=== PATIENT | female | born 1950 | race African-American/Black ===

== ENCOUNTER 2017-09-16 13:25 | Emergency (ER) | payer MEDICARE ==
--- NOTE | 2017-09-16 14:25 | RAD ---
CHEST ONE VIEW: History: Cough. Comparison: 12-29-12 FINDINGS: Cardiac silhouette and pulmonary vasculature are unremarkable. Mediastinum is midline with post-opera tive changes. Posterior basilar infiltrate on the lateral view is favored to be rectrocardiac on the frontal view. Upper lobes are clear. IMPRESSION: Left basilar infiltrate. Clinical correlation regarding other signs and symptoms of left lower lobe p neumonitis is required. Please consider radiographic follow up after medical treatment to evaluate fo r clearing. POS: [facility]
== END 2017-09-16 14:21 | disposition home or self-care (01) ==
LOC: NAV ERS 13:25
DX: J18.9 Pneumonia, unspecified organism (principal); I25.2 Old myocardial infarction; E11.9 Type 2 diabetes mellitus without complications; E78.5 Hyperlipidemia, unspecified; I10 Essential (primary) hypertension; Z79.899 Other long term (current) drug therapy; Z79.82 Long term (current) use of aspirin; Z79.4 Long term (current) use of insulin
CPT/HCPCS: 71046

== ENCOUNTER 2018-09-25 18:11 | Emergency (ER) | payer MEDICARE, BC ==
[2018-09-25] MEDS ORDERED: Aspirin Chewable 81 MG TAB ONE (18:27)
[2018-09-25 18:45] LABS: #Basophils 0.1 thou/uL (0.0-0.2); #Eosinphils 0.2 thou/uL (0.0-0.7); #Monocytes 0.6 thou/uL (0.11-0.59); #Neutrophils 4.3 thou/uL (1.40-6.50); %Basophils 1.8 % (0.0-1.0); %Eosinophils 2.1 % (0.0-10.0); %Lymphocytes 36.7 % (21.0-51.0); %Neutrophils 52.4 % (42.0-75.0); Hemoglobin 15.9 g/dL (12.0-16.0); Mean Corpuscular Hemoglobin 29.3 pg (27.0-31.0); Mean Corpuscular Volume 88.9 fL (78.0-98.0); Mean Platelet Volume 7.6 fL (7.4-10.4); Platelet Count 316 thou/uL (130-400); RBC Distribution Width 11.5 % (11.5-14.5); Red Blood Cell (RBC) Count 5.41 mill/uL (4.20-5.40); White Blood Cell (WBC) Count 8.2 thou/uL (4.8-10.8)
[2018-09-25 18:59] LABS: ALT (SGPT) 20 U/L (8-55); AST (SGOT) 27 U/L (5-34); Albumin 4.5 g/dL (3.4-4.8); Alkaline Phosphatase 90 U/L (40-150); Anion Gap 18 mmol/L (10-20); BUN (Urea Nitrogen) 10 mg/dL (9.8-20.1); Bilirubin, Total 0.5 mg/dL (0.2-1.2); Calc. Creatinine Clearance 0 mL/min (70-130); Calcium 9.8 mg/dL (7.8-10.44); Carbon Dioxide 22 mmol/L (23-31); Chloride 104 mmol/L (98-107); Estimated GFR-MDRD 71; Globulin 3.2 g/dL (2.4-3.5); Glucose 184 mg/dL (80-115); Potassium 3.6 mmol/L (3.5-5.1); Protein, Total 7.7 g/dL (6.0-8.3); Sodium 140 mmol/L (136-145)
--- NOTE | 2018-09-25 19:48 | RAD ---
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 Coronary artery stent overlies the left cardiac borde r. The cardiac silhouette and pulmonary vasculature are within normal limits. The lungs are clear. The osseous structures are intact. Vascular calcifications are seen in the thoracic aorta. There has been no interval change from prior exam. IMPRESSION: No acute cardiopulmonary process.
== END 2018-09-25 20:55 | disposition short-term general hospital (02) ==
LOC: NAV ERS 18:11
DX: I20.9 Angina pectoris, unspecified (principal); I25.2 Old myocardial infarction; E11.9 Type 2 diabetes mellitus without complications; I10 Essential (primary) hypertension; E78.5 Hyperlipidemia, unspecified; Z79.899 Other long term (current) drug therapy; Z79.4 Long term (current) use of insulin
CPT/HCPCS: 71045; 80053; 83880; 84484; 85025; 93005; 94760